=== PATIENT | female | born 1990 | race Caucasian/White ===

== ENCOUNTER 2017-10-09 20:10 | Emergency (ER) | payer BC ==
[~2017-10-09] VITALS: Ht 167.6 cm; Wt 59.9 kg
[2017-10-09] MEDS ORDERED: NKM (20:18)
--- NOTE | 2017-10-09 20:39 | Emergency Room Report ---
History of Present Illness General Chief Complaint: Vomiting Source: Patient (Alfredo Chaparro M.D.) Present Illness HPI 26-year-old female with no sig pmhx p/w nausea and vomiting for one day Pt reports n/v, 5 episodes of nbnb vomiting, denies diarrhea She admits to taking Adderall and an unknown amount of alcohol last night but denies any other drugs Patient states pain started gradually , localized to epigastric area, non radiating, burning in nature, intermittent. No relieving or exacerbating factors. Pt reports n/v, 5 episodes of nbnb vomiting, denies diarrhea Denies fever, chills. No hx of abdominal surgeries. No hx of endoscopies/colonoscopies. (Alfredo Chaparro M.D.) Allergies: Coded Allergies: No Known Allergies (Unverified , 10/09/17) Patient History Past Medical History: see triage record Past Surgical History: none Pertinent Family History: none Last Menstrual Period: September Reviewed Nursing Documentation: PMH: Agreed; PSxH: Agreed (Alfredo Chaparro M.D. ) Nursing Documentation-PMH Past Medical History: No Stated History (Alfredo Chaparro M.D.) Review of Systems All Other Systems: negative except mentioned in HPI (Alfredo Chaparro M.D.) Physical Exam Vital Signs Date Time Temp Pulse Resp B/P (MAP) Pulse Ox O2 Delivery O2 Flow Rate FiO2 10/09/17 20:14 97.9 110 18 125/60 98 Room Air 97.9 Sp02 EP Interpretation: reviewed, normal General Appearance: alert, GCS 15, non-toxic, mild distress Head: normocephalic, atraumatic Eyes: bilateral eye normal inspection, bilateral eye PERRL, bilateral eye EOMI ENT: normal ENT inspection, normal pharynx, normal voice, moist mucus membranes Neck: normal inspection, full range of motion, supple Respiratory: normal inspection, lungs clear, normal breath sounds, no respiratory distress, no retraction, no wheezing, speaking full sentences, chest symmetrical Cardiovascular #1: normal inspection, regular rate, rhythm, no edema, normal capillary refill Cardiovascular #2: 2+ radial (R), 2+ radial (L) Gastrointestinal: normal inspection, non tender, soft, non-distended, no guarding, other - nontender entire abd Musculoskeletal: normal inspection, back normal, normal range of motion, non- tender Neurologic: normal inspection, alert, oriented x3, responsive, motor strength/ tone normal, sensory intact, normal gait, speech normal Psychiatric: normal inspection, judgement/insight normal, memory normal Skin: normal inspection, normal color, no rash, warm/dry, well hydrated, normal turgor (Alfredo Chaparro M.D.) Medical Decision Making Diagnostic Impression: Primary Impression: Nausea and vomiting Qualified Codes: R11.2 - Nausea with vomiting, unspecified Additional Impression: Alcohol abuse ER Course 26-year-old female with nausea vomiting and epigastric pain Differential Diagnosis: Gastritis, gastroenteritis, pancreatitis, cholecystitis, appendicitis, diverticulitis, SBO, mesenteric ischemia, cardiac, UTI/pyelo At this time abdomen is soft nontender, not likely to have acute intra- abdominal surgical pathology, will hold CT for now. Plan: Basic labs, ua, Pepcid, Zofran, IV fluids ER course: Patient has remained stable during ED stay. received fluids and zofran nontoxic appearing, ambulating around the ED Signed out patient to Dr Mauricio 26 yo F with n/v x 1 day, admits to also using adderall and alcohol on empty stomach. abd exam benign pending labs, symptom control, reassess for final dispo (Alfredo Chaparro M.D.) ER Course This patient was signed out to me. She presents with vomiting. She said she was drinking heavily 10 hours ago. Blood alcohol here is ready elevated. Her WILLIAM is probably close to 400. She showed no sign of intoxication here. She denied having any problem. Last time she drank was 30 days prior. Vomiting is probably secondary to her alcohol. Patient is improved now. We'll discharge home after IV fluid. (VELIA MAURICIO M.D.) Last Vital Signs Date Time Temp Pulse Resp B/P (MAP) Pulse Ox O2 Delivery O2 Flow Rate FiO2 10/09/17 20:14 97.9 110 18 125/60 98 Room Air 97.9 (Alfredo Chaparro M.D.) Status: improved (VELIA MAURICIO M.D.) Disposition: HOME, SELF-CARE Condition: Stable Patient Instructions: Nausea and Vomiting, Adult Additional Instructions: Abstain from drinking to excess. Follow-up your doctor in 7 days. Increase fluid. Advance diet as tolerated. Return if worse. Alfredo Chaparro M.D. Oct 09, 2017 20:39 VELIA MAURICIO M.D. Oct 09, 2017 21:46
[2017-10-09 20:40] VITALS: BP 121/62
[2017-10-09 20:51] LABS: APPEARANCE,URINE CLEAR; BILIRUBIN, URINE NEGATIVE (NEGATIVE); COLOR,URINE PALE YELLOW; GLUCOSE, URINE (UA) NEGATIVE (NEGATIVE); KETONES,URINE 4+ (NEGATIVE); LEUKOCYTE ESTERASE ,URINE NEGATIVE (NEGATIVE); NITRITE,URINE NEGATIVE (NEGATIVE); PH,URINE 5 (4.5-8.0); PROTEIN,URINE NEGATIVE (NEGATIVE); UROBILINOGEN,URINE NORMAL MG/DL (0.0-1.0)
[2017-10-09 21:22] LABS: HEMATOCRIT 45.3 % (37.0-47.0); HEMOGLOBIN 14.8 G/DL (12.0-16.0); MEAN CORPUSCULAR VOLUME 95 FL (80-99); PLATELET COUNT 456 K/UL (150-450); RED BLOOD COUNT 4.75 M/UL (4.20-5.40); RED CELL DISTRIBUTION WIDTH 10.6 % (11.6-14.8); WHITE BLOOD COUNT 12.1 K/UL (4.8-10.8)
[2017-10-09 21:29] LABS: ANION GAP 23 mmol/L (5-15); BLOOD UREA NITROGEN 15 mg/dL (7-18); CARBON DIOXIDE 15 MMOL/L (21-32); CHLORIDE 100 MMOL/L (98-107); POTASSIUM 4.4 MMOL/L (3.5-5.1); SODIUM 138 MMOL/L (136-145)
[2017-10-09 21:34] LABS: ALANINE AMINOTRANSFERASE 35 U/L (12-78); ALBUMIN 4.3 G/DL (3.4-5.0); ALBUMIN/GLOBULIN RATIO 1.1 (1.0-2.7); ALKALINE PHOSPHATASE 55 U/L (46-116); ASPARTATE AMINO TRANSFERASE 25 U/L (15-37); BILIRUBIN,TOTAL 0.2 MG/DL (0.2-1.0)
[2017-10-09 21:40] VITALS: BP 123/62
[2017-10-09 23:22] VITALS: BP 118/64
== END 2017-10-09 23:22 | disposition home or self-care (01) ==
LOC: EMR 20:30
DX: R11.2 Nausea with vomiting, unspecified (principal); R10.13 Epigastric pain; F10.10 Alcohol abuse, uncomplicated
CPT/HCPCS: 36415; 80053; 80307; 81003; 81025; 83690; 84702; 85007; 85025; 96360; 96361; 96374; 96375; 99284; G0480; J2405; S0028; 80329